=== PATIENT | female | born 1985 | race Caucasian/White ===

== ENCOUNTER 2016-12-13 07:35 | Inpatient (IN) | payer OTHER, MEDICAID ==
[2016-12-13] MEDS ORDERED: Nalbuphine 20 MG/1 ML Amp IVPUSH PRN (17:50)
[2016-12-13] MEDS ORDERED: Ondansetron 4 MG/2 ML SDV IVPUSH PRN ×2 (17:50→18:41)
[2016-12-13] MEDS ORDERED: Ampicillin 2 GM in Sodium Chloride 0.9% 100 ML IV ONE (17:50)
[2016-12-13] MEDS ORDERED: Lidocaine 1% 50 ML MDV INJECT ONE (17:50)
[2016-12-13] MEDS ORDERED: Sodium Chloride 0.9% 10 ML Syringe FLUSH PRN (17:50)
[2016-12-13] MEDS: Lactated Ringers 1,000 ML IV SCH ×3 (18:11→20:39)
[2016-12-13] MEDS ORDERED: FLU Vacc QS 2017-18 (6mos UP)/PF 60 MCG/0.5 ML Syringe IM ONE (18:15)
--- NOTE | 2016-12-13 18:27 | PCM.LDHP ---
L&D History of Present Illness - General Date of Service: 12/13/16 Admit Problem/Dx: Patient Status Order with Admit Dx/Problem 12/13/16 17:50 Patient Status [ADT] Routine Admission Diagnosis/Problem Admission Diagnosis/Problem complications 12/13/16 17:53 1. 37-3/7 week intrauterine and prepped 2. Gestational hypertension 3. Hypertensive retinopathy 4. Active labor Source of Information: Patient History Limitations: Reports: No Limitations - History of Present Illness Introduction:: Alexandra is a 31-year-old 5 para 4004 white female who is admitted from clinic in early active labor. She has changed her cervix from 1-2 cm 36 hours ago to 4 cm at this time. She is matt every 5 minutes. She has a history of gestational hypertension, is on labetalol 100 mg by mouth twice a day with reasonably good results. She has a history of diabetic retinopathy per her tele rn evaluation. Baby has been active and nonstress test has been reactive. RN PROCEDURE history: Patient is a 5 para 4004. ELIZABETH is 12/31/2016 is dated by 13-2/7 week ultrasound. Last menstrual period was irregular and uncertain. Her dates were supported by 2 other ultrasounds done on 08/14/2016 and 09/11/2016. Her previous deliveries included the followin. Delivery 03/29/2007 at 38 weeks after 4 hours of labor7 lbs. 5 oz.spontaneous vaginal delivery in [place], [place] 2. Female , 7 lbs. 10 oz., blurred 07/17/2009 at 39 weeks gestational age after 2 hours of labor. Baby delivered via normal [place] vaginal delivery. [facility]. 3. Male born 06/14/2013 at 38 weeks gestational age, 7 lbs. 12 oz., mild C [place] 4. Female infant born 08/05/2015 at 37 weeks gestational age after 2 hours labor , 6 lbs. 0 oz., normal spontaneous vaginal delivery, child's name is Blaike course was remarkable for the diabetic retinopathy. Patient had acid reflux. She had an abnormal 1 hour glucose tolerance test and an abnormal three- hour glucose tolerance test. She was on diet control for her diabetes with good results. She is on labetalol 100 mg by mouth every 12 hours throughout the . Group B strep screen was positive in the urine. She is candidate for prophylactic antibiotics. Inverted depression screening on 08/21/2016 was 0. Patient plans to bottlefeed. She had some thrombocytopenia affecting . Her last platelet count was 155 on 11/27/2016. Her weight gain during the course of the was from 213 pounds up to 218 pounds 4.5 pound weight gain. Fundal height growth was normal Laboratory testing and shows her blood to be O+. Negative antibody screen. Initial labs showed hemoglobin 13.1 g/dL. Platelets were 199, 000. Pap smear showed low-grade squamous intraepithelial lesion and patient was evaluated with colposcopy. Colposcopy showed no abnormalities and 9 requiring any attention during . It'll be repeated along with a Pap smear in the period. She is rubella immune. RPR is nonreactive. Group B strep was noted on urine culture at the beginning the . Hepatitis B and HIV assays were both negative. GC and chlamydia asses both negative. Her GTT was 148. Three-hour glucose tolerance test was abnormal. Her second trimester hemoglobin was 12.1 and platelets were 170. Platelets on 918 2155. Her three- hour glucose tolerance test was as follows: Fasting blood sugar 92, 1 hour GTT 173, 2R GTT 150, three-hour GTT 136. Allergies none Medications: 1. Labetalol 100 mg by mouth every 12 hours 2. vitamins daily 3. Prilosec 20 mg by mouth every morning when necessary for acid indigestion. Past medical history: 1. Vaginal delivery 4. 2. Diabetic retinopathy 3. Gestational hypertension. Family history mother is alive with type 2 diabetes. Father is alive and well. One brother and sister alive and. One sister has type 2 diabetes mellitus. Paternal grandmother is alive and well. Maternal grandfather secondary to an SC at age 54. Paternal grandfather . Medora to be secondary to some type of leukemia. Paternal grandmother secondary to leukemia. No family history of bleeding, anesthesia, blood clotting or problems family. Social history: Patient is single. Significant other is Levon Malloy. She does not use any significant amounts of alcohol, drugs or tobacco. She is an esl instructional assistant. She lives in [facility]. Review of systems: Skin: Negative Cardiovascular: No chest pain or exercise tolerance Respiratory: No infectious symptoms or shortness of breath Breasts: Changes associated with only GI: Negative : changes Neurological: Negative Musculoskeletal: Occasional edema. Physical exam: Last dilation clinic earlier today patient's blood pressure was 136/72, weight was 218 pounds. heart rate was 146. Initial findings showed a height of 53. Weight 213. Prepregnancy body mass index of 34.5. Her blood pressure at her first visit was 170/68. In general patient is a well-developed, well-nourished, pleasant female stated age in no acute distress. She appears to be a good historian. Skin is warm and dry without lesions. HEENT, neck and back within normal limits Lungs are clear with good breath sounds in all medel. Cardiovascular exam shows regular rate and rhythm without murmurs. Breast exam is deferred. Was done at first visit and found normal. Patient plans to bottlefeed. Abdomen is protuberant with with fundal height of 39 cm. AB in vertex presentation. Cervix: 4 cm, 80% effaced, -2 station, cephalic presentation, very soft consistency, anterior position, bag tesfaye intact. Extremities and neurological exam are grossly within normal limits. No significant edema noted. - Related Data Allergies/Adverse Reactions: Allergies Allergy/AdvReac Type Severity Reaction Status Date / Time No Known Allergies Allergy Verified 12/13/16 17:21 Home Medications: Home Meds Labetalol [Normodyne] 100 mg PO BID 12/13/16 [History] Omeprazole Magnesium [Prilosec Otc] 20 mg PO ASDIRECTED PRN 12/13/16 [History] Vit W-Ca,Fe,FA(<1 mg) [ Vitamins] 1 tab PO DAILY 12/13/16 [ History] Past Medical History Cardiovascular History: Reports: Hypertension, Other (See Below) Other Cardiovascular History: HTN during third trimester Gastrointestinal History: Reports: GERD Other Gastrointestinal History: Nausea and vomiting of RN PROCEDURE History: Reports: Endocrine/Metabolic History: Reports: Diabetes, Gestational Hematologic History: Reports: Iron Deficiency, Other (See Below) Other Hematologic History: Iron deficiency anemia of - Past Surgical History HEENT Surgical History: Reports: Oral Surgery Musculoskeletal Surgical History: Reports: Arthroscopic Knee Social & Family History - Family History Family Medical History: Noncontributory - Tobacco Use Smoking Status *Q: Current Every Day Smoker Years of Tobacco use: 14 Packs/Tins Daily: 0.1 Used Tobacco, but Quit: Yes Month Tobacco Last Used: Prepregnancy Second Hand Smoke Exposure: No - Recreational Drug Use Recreational Drug Use: No H&P Review of Systems - Review of Systems: Review Of Systems: See Below L&D Exam - Exam Exam: See Below - Vital Signs Weight: 99.246 kg - Patient Data Lab Results Last 24 hrs: Laboratory Results - last 24 hr 12/13/16 Range/Units 15:08 Urine Color Yellow (Yellow) Urine Appearance Clear (Clear) Urine pH 6.0 (5.0-8.0) Ur Specific [place] > or = 1.030 (1.005-1.030) Urine Protein 1+ H (Negative) Urine Glucose (UA) Negative (Negative) Urine Ketones Trace H (Negative) Urine Occult Blood Negative (Negative) Urine Nitrite Negative (Negative) Urine Bilirubin Negative (Negative) Urine Urobilinogen 0.2 (0.2-1.0) Ur Leukocyte Esterase Negative (Negative) Problem List Initiated/Reviewed/Updated: Yes Orders Last 24hrs: Active Orders 24 hr Category Date Time Status Patient Status [ADT] Routine ADT 12/13/16 17:50 Ordered Activity as Tolerated [RC] PFP Care 12/13/16 17:50 Ordered Communication Order [RC] ASDIRECTED Care 12/13/16 17:50 Ordered Heart Tones [RC] ASDIRECTED Care 12/13/16 17:51 Ordered Notify Provider [RC] PFP Care 12/13/16 17:50 Ordered Notify Provider [RC] PRN Care 12/13/16 17:50 Ordered Peripheral IV Care [RC] . DIRECTED Care 12/13/16 17:51 Ordered Pump Management, Intrathecal [RC] ASDIRECTED Care 12/13/16 17:52 Ordered Vital Signs [RC] PER UNIT ROUTINE Care 12/13/16 17:50 Ordered Regular Diet [DIET] Diet 12/13/16 Dinner Ordered CBC WITH AUTO DIFF [HEME] Stat Lab 12/13/16 17:50 Ordered Ampicillin 1 gm Med 12/13/16 18:00 Ordered Sodium Chloride 0.9% [Normal Saline] 100 ml IV Q4H Ampicillin 2 gm Med 12/13/16 17:50 Ordered Sodium Chloride 0.9% [Normal Saline] 100 ml IV ONETIME Lactated Ringers [Ringers, Lactated] 1,000 ml Med 12/13/16 18:00 Ordered IV ASDIRECTED Lidocaine 1% [Xylocaine 1%] Med 12/13/16 17:50 Once 10 ml INJECT ONETIME ONE Nalbuphine [Nubain] Med 12/13/16 17:50 Ordered 10 mg IVPUSH Q2H PRN Ondansetron [Zofran] Med 12/13/16 17:50 Ordered 4 mg IVPUSH Q4H PRN Sodium Chloride 0.9% [Saline Flush] Med 12/13/16 17:50 Ordered 10 ml FLUSH ASDIRECTED PRN Electronic Heart Tones Ext w TOCO [WOMSER] Oth 12/13/16 17:50 Ordered Routine Electronic Heart Tones Internal [WOMSER] Per Unit Ot 12/13/16 17:50 Ordered Routine Peripheral IV Insertion Adult [OM.PC] Routine Ot 12/13/16 17:50 Ordered Resuscitation Status Routine Resus Stat 12/13/16 17:50 Ordered Assessment/Plan Comment:: Assessment: 1. 37-3/7 week intrauterine , active labor with progressive cervical dilation 2. Gestational hypertension, cannot entirely rule out pre-existing hypertension before . On labetalol throughout with good control. 3. Hypertensive retinopathy 4. Gestational diabetes, diet controlled 5. Patient desiring epidural in labor and delivery for pain control. 6. Patient plans to bottlefeed. 7. Group B strep positive status Plan: 1. Admit for early active labor. 2. Ampicillin per protocol for group B strep prophylaxis 3. Epidural when necessary for pain control 4. Anticipate normal spontaneous vaginal delivery.
[2016-12-13] MEDS ORDERED: fentaNYL 100 MCG/2 ML SDV EPIDUR PRN (18:41)
[2016-12-13] MEDS ORDERED: ePHEDrine 50 MG/ML SDV IVPUSH PRN (18:41)
[2016-12-13] MEDS ORDERED: Bupivacaine/fentaNYL/NS 100 ML Bag EPIDUR SCH (18:45)
[2016-12-13] MEDS ORDERED: Bupivacaine 0.25% 10 ML SDV ONE (18:45)
--- NOTE | 2016-12-13 18:45 | PCM.PREANE ---
Preanesthetic Assessment - Anesthesia/Transfusion/Family Hx Anesthesia History: Prior Anesthesia Without Reaction Family History of Anesthesia Reaction: No Transfusion History: No Prior Transfusion(s) Intubation History: Unknown - Review of Systems General: No Symptoms Pulmonary: No Symptoms Cardiovascular: No Symptoms (Gestational HTN/Hypertensive retinopathy), Dyspnea on Exertion Gastrointestinal: No Symptoms (GERD) Neurological: No Symptoms (Motion sickness) Other: Reports: None, Sinus Problem (stuffy nose) - Physical Assessment NPO Status Date: 12/13/16 NPO Status Time: 16:00 Pulse: 100 O2 Sat by Pulse Oximetry: 99 Respiratory Rate: 20 Blood Pressure: 141/75 Temperature: 36.2 C Vital Signs: Last Vital Signs Temp 36.2 C 12/13/16 17:50 Pulse 90 12/13/16 18:15 Resp 17 12/13/16 17:50 BP 142/81 H 12/13/16 18:15 Pulse Ox Height: 1.6 m Weight: 99.246 kg ASA Class: 2 Mental Status: Alert & Oriented x3 Airway Class: Mallampati = 2 Dentition: Reports: Normal Dentition, Caries Thyro-Mental Finger Breadths: 3 Mouth Opening Finger Breadths: 3 ROM/Head Extension: Full Lungs: Clear to Auscultation, Normal Respiratory Effort Cardiovascular: Regular Rate, Regular Rhythm, No Murmurs - Lab Values: Laboratory Last Values WBC 9.93 K/mm3 (3.98-10.04) 12/13/16 18:04 RBC 4.12 M/mm3 (3.98-5.22) 12/13/16 18:04 Hgb 12.4 gm/L (11.2-15.7) 12/13/16 18:04 Hct 36.9 % (34.1-44.9) 12/13/16 18:04 MCV 89.6 fl (79.4-94.8) 12/13/16 18:04 MCH 30.1 pg (25.6-32.2) 12/13/16 18:04 MCHC 33.6 g/dl (32.2-35.5) 12/13/16 18:04 RDW Std Deviation 47.9 fL (36.4-46.3) H 12/13/16 18:04 Plt Count 159 K/mm3 (182-369) L 12/13/16 18:04 MPV 11.4 fl (9.4-12.3) 12/13/16 18:04 Neut % (Auto) 67.1 % (34.0-71.1) 12/13/16 18:04 Lymph % (Auto) 23.8 % (19.3-51.7) 12/13/16 18:04 [place] % (Auto) 7.9 % (4.7-12.5) 12/13/16 18:04 Eos % (Auto) 0.9 (0.7-5.8) 12/13/16 18:04 Baso % (Auto) 0.1 % (0.1-1.2) 12/13/16 18:04 Neut # (Auto) 6.67 K/mm3 (1.56-6.13) H 12/13/16 18:04 Lymph # (Auto) 2.36 K/mm3 (1.18-3.74) 12/13/16 18:04 [place] # (Auto) 0.78 K/mm3 (0.24-0.36) H 12/13/16 18:04 Eos # (Auto) 0.09 K/mm3 (0.04-0.36) 12/13/16 18:04 Baso # (Auto) 0.01 K/mm3 (0.01-0.08) 12/13/16 18:04 Urine Color Yellow (Yellow) 12/13/16 15:08 Urine Appearance Clear (Clear) 12/13/16 15:08 Urine pH 6.0 (5.0-8.0) 12/13/16 15:08 Ur Specific [place] > or = 1.030 (1.005-1.030) 12/13/16 15:08 Urine Protein 1+ (Negative) H 12/13/16 15:08 Urine Glucose (UA) Negative (Negative) 12/13/16 15:08 Urine Ketones Trace (Negative) H 12/13/16 15:08 Urine Occult Blood Negative (Negative) 12/13/16 15:08 Urine Nitrite Negative (Negative) 12/13/16 15:08 Urine Bilirubin Negative (Negative) 12/13/16 15:08 Urine Urobilinogen 0.2 (0.2-1.0) 12/13/16 15:08 Ur Leukocyte Esterase Negative (Negative) 12/13/16 15:08 Above labs reviewed and noted. - Allergies Allergies/Adverse Reactions: Allergies Allergy/AdvReac Type Severity Reaction Status Date / Time No Known Allergies Allergy Verified 12/13/16 17:21 - Anesthesia Plan Beta Ernestina: Labetalol Med Last Dose Date: 12/13/16 Med Last Dose Time: 06:00 - Acknowledgements Anesthesia Type Planned: Epidural Pt an Appropriate Candidate for the Planned Anesthesia: Yes Alternatives and Risks of Anesthesia Discussed w Pt/Guardian: Yes Pt/Guardian Understands and Agrees with Anesthesia Plan: Yes PreAnesthesia Questionnaire Cardiovascular History: Reports: Hypertension, Other (See Below) Other Cardiovascular History: HTN during third trimester Gastrointestinal History: Reports: GERD Other Gastrointestinal History: Nausea and vomiting of [employer] History: Reports: Endocrine/Metabolic History: Reports: Diabetes, Gestational Hematologic History: Reports: Iron Deficiency, Other (See Below) Other Hematologic History: Iron deficiency anemia of - Past Surgical History HEENT Surgical History: Reports: Oral Surgery Musculoskeletal Surgical History: Reports: Arthroscopic Knee - SUBSTANCE USE Smoking Status *Q: Current Every Day Smoker Tobacco Use Within Last Twelve Months: Cigarettes Second Hand Smoke Exposure: No Recreational Drug Use History: No - HOME MEDS Home Medications: Home Meds Labetalol [Normodyne] 100 mg PO BID 12/13/16 [History] Omeprazole Magnesium [Prilosec Otc] 20 mg PO ASDIRECTED PRN 12/13/16 [History] Vit W-Ca,Fe,FA(<1 mg) [ Vitamins] 1 tab PO DAILY 12/13/16 [ History] - CURRENT (IN HOUSE) MEDS Current Meds: Current Medications Ampicillin Sodium 1 gm/ Sodium (Chloride) 100 mls @ 200 mls/hr IV Q4H ROSALBA Lactated Ringer's (Ringers, Lactated) 1,000 mls @ 100 mls/hr IV ASDIRECTED ROSALBA Last Admin: 12/13/16 18:11 Dose: 100 mls/hr Nalbuphine HCl (Nubain) 10 mg IVPUSH Q2H PRN PRN Reason: Pain (moderate 4-6) Ondansetron HCl (Zofran) 4 mg IVPUSH Q4H PRN PRN Reason: Nausea/Vomiting Sodium Chloride (Saline Flush) 10 ml FLUSH ASDIRECTED PRN PRN Reason: Keep Vein Open Discontinued Medications Ampicillin Sodium 2 gm/ Sodium (Chloride) 100 mls @ 200 mls/hr IV ONETIME ONE Stop: 12/13/16 18:19 Last Admin: 12/13/16 18:11 Dose: 200 mls/hr Lidocaine HCl (Xylocaine 1%) 10 ml INJECT ONETIME ONE Stop: 12/13/16 17:51
[2016-12-13] MEDS ORDERED: Oxytocin/Lactated Ringers 10 UNIT/1,000 ML BAG IV SCH ×2 (20:45)
[2016-12-13] MEDS: Ampicillin 1 GM in Sodium Chloride 0.9% 100 ML IV SCH (21:52)
[2016-12-14] MEDS: Ampicillin 1 GM in Sodium Chloride 0.9% 100 ML IV SCH (01:46)
--- NOTE | 2016-12-14 03:09 | PCM.SN ---
- Free Text/Narrative Note: Alexandra is a 31-year-old 5 now para 5005 white female who is admitted today on 12/13/2016 for active contractions and change in her cervix. She is 37-3 /7 weeks upon admission based upon an early ultrasound. Her is complicated by hypertension and hypertensive retinopathy. She's been monitored on a regular basis with testing which has been within normal limits. She's been on labetalol 100 mg by mouth twice a day throughout the . Upon admission her cervix was noted to be 4 centimeters, 80% effaced, -2 station , mid to anterior position, very soft consistency of cervix. The membranes were ruptured and this facilitated an increase in contractions. Patient became near completely dilated at approximately 0240 hrs. on 12/14/2016. She pushed 1 time and delivered a viable, noe, 3600 g pregnancies 7 lbs. 15 oz.) male infant with Apgars of 8 and 9, a length 21 inches in a right occiput anterior position. Baby was completely delivered and placed on mom's abdomen. Cord was clamped 2 and the dad cut the cord. Cord blood was obtained. The umbilical cord was found to have 3 vessels. The patient was administered Pitocin IV after delivery of the baby. This facilitated increase in uterine tone and decrease bleeding. The placenta then delivered spontaneously in a [place] presentation. It appeared complete and intact and was discarded per patient desire. Estimated blood loss was 100 mL. Patient did not have any perineal or vaginal lacerations. She plans to bottlefeed. Condition: Good
[2016-12-14] MEDS ORDERED: Witch Hazel Medicated Pads 100/Jar TOP PRN (03:49)
[2016-12-14] MEDS ORDERED: Docusate Sodium 100 MG Cap PO PRN (03:49)
[2016-12-14] MEDS ORDERED: Benzocaine/Menthol 20%-0.5% Spray 56 GM Canister TOP PRN (03:49)
[2016-12-14] MEDS ORDERED: Acetaminophen 325 MG Tab PO PRN (03:49)
[2016-12-14] MEDS ORDERED: Labetalol 100 MG Tab PO SCH ×2 (09:00)
[2016-12-14] MEDS: Prenatal Multivitamin with Calcium/Folic Acid/Iron Tab PO SCH (10:01)
--- NOTE | 2016-12-14 12:46 | PCM48HPAN ---
Post Anesthesia Note - EVALUATION WITHIN 48HRS OF ANESTHETIC Vital Signs in Normal Range: Yes Patient Participated in Evaluation: Yes Respiratory Function Stable: Yes Airway Patent: Yes Cardiovascular Function Stable: Yes Hydration Status Stable: Yes Pain Control Satisfactory: Yes Nausea and Vomiting Control Satisfactory: Yes Mental Status Recovered: Yes - COMMENTS/OBSERVATIONS Free Text/Narrative:: Denied any headaches, back pain, or residual numbness/ tingling to lower extremities.
[2016-12-14] MEDS: Ibuprofen 600 MG Tab PO PRN (19:19)
--- NOTE | 2016-12-15 06:14 | PCM.DCSUM1 ---
Discharge Summary - Hospital Course Free Text/Narrative:: Alexandra is a 31-year-old 5 now para 5005 white female who is admitted on 12/13/2016 for active contractions and change in her cervix. She is 37-3/7 weeks upon admission based upon an early ultrasound. Her is complicated by hypertension and hypertensive retinopathy. She's been monitored on a regular basis with testing which has been within normal limits. She's been on labetalol 100 mg by mouth twice a day throughout the . Upon admission her cervix was noted to be 4 centimeters, 80% effaced, -2 station, mid to anterior position, very soft consistency of cervix. The membranes were ruptured and this facilitated an increase in contractions. Patient became near completely dilated at approximately 0240 hrs. on 12/14/2016. She pushed 1 time and delivered a viable, noe, 3600 g pregnancies 7 lbs. 15 oz.) male infant with Apgars of 8 and 9, a length 21 inches in a right occiput anterior position. Baby was completely delivered and placed on mom's abdomen. Cord was clamped 2 and the dad cut the cord. Cord blood was obtained. The umbilical cord was found to have 3 vessels. The patient was administered Pitocin IV after delivery of the baby. This facilitated increase in uterine tone and decrease bleeding. The placenta then delivered spontaneously in a [place] presentation. It appeared complete and intact and was discarded per patient desire. Estimated blood loss was 100 mL. Patient did not have any perineal or vaginal lacerations. She plans to bottlefeed. the patient's blood pressures have been within normal limits for the entire.. She is bottlefeeding. Lochia is minimal. She is feeling fine. She is desiring to be discharged. - Discharge Data Discharge Date: 12/15/16 Discharge Disposition: Left Without Being Seen 07 Condition: Good - Patient Instructions Diet: Regular Diet as Tolerated Activity: As Tolerated (No intercourse or tampons until bleeding resolves) Driving: May Drive Today Showering/Bathing: May Shower (may take a bath) Notify Provider of: Fever, Increased Pain, Swelling and Redness, Nausea and/or Vomiting - Discharge Plan Home Medications: Home Meds Vit W-Ca,Fe,FA(<1 mg) [ Vitamins] 1 tab PO DAILY 12/13/16 [ History] Ibuprofen [IJD: Ibuprofen] 600 mg PO Q4H PRN #30 tablet 12/15/16 [Rx] Patient Handouts: Smoking Cessation, Tips for Success, [id number], Smoking Hazards Referrals: Ricci Andrade MD [Primary Care Provider] - ([facility] to clinicDr. [facility] - Discharge Summary/Plan Comment DC Time >30 min.: No Discharge Summary/Plan Comment: Discharge instructions: 1. Discharge 2. Regular, high fiber diet 3. Activity and follow-up discussed in detail patient. 4. Precautions given concerning increased pain, bleeding, temperature, blood pressure, signs/symptoms of DVT/PE 5. Medications per home medication was printed, discussed with given to the patient. 6. Return to clinic1 week for blood pressure checks-Dr. Andrade. Diagnosis: 1. 37 week -delivered 2. Gestational hypertension 3. Hypertensive retinopathy Condition: Good - Patient Data Vitals - Most Recent: Last Vital Signs Temp 36.4 C 12/14/16 21:02 Pulse 88 12/14/16 21:02 Resp 16 12/14/16 21:02 BP 127/63 12/14/16 21:02 Pulse Ox 97 12/14/16 21:02 Weight - Most Recent: 99.246 kg I&O - Last 24 hours: Intake & Output 12/14/16 12/14/16 12/15/16 14:59 22:59 06:59 Intake Total 300 120 Balance 300 120 Med Orders - Current: Current Medications Acetaminophen (Tylenol) 650 mg PO Q4H PRN PRN Reason: mild pain or fever Benzocaine/Menthol (Dermoplast Pain Relief [place]) 0 gm TOP ASDIRECTED PRN PRN Reason: Perineal Comfort Measure Docusate Sodium (Colace) 100 mg PO BID PRN PRN Reason: Constipation Ibuprofen (Motrin) 600 mg PO Q4H PRN PRN Reason: Mild pain or fever Last Admin: 12/14/16 19:19 Dose: 600 mg Prenat Multivit/[place]/Iron/Folic Ac ( Plus Iron) 1 each PO DAILY ROSALBA Last Admin: 12/14/16 10:01 Dose: 1 each [place] (Tucks) 1 pad TOP ASDIRECTED PRN PRN Reason: Hemorrhoid pain Discontinued Medications Ephedrine Sulfate (Ephedrine Sulfate) 5 mg IVPUSH ASDIRECTED PRN PRN Reason: Hypotension Fentanyl (Sublimaze) 100 mcg EPIDUR Q3H PRN PRN Reason: Pain Last Admin: 12/13/16 19:38 Dose: 100 mcg Fentanyl/Bupivacaine HCl (Fentanyl/Bupivacaine/Ns 2 Mcg-0.125% 100 Ml) 100 ml EPIDUR ASDIRECTED ROSALBA Last Admin: 12/13/16 19:37 Dose: 100 ml Ampicillin Sodium 2 gm/ Sodium (Chloride) 100 mls @ 200 mls/hr IV ONETIME ONE Stop: 12/13/16 18:19 Last Admin: 12/13/16 18:11 Dose: 200 mls/hr Ampicillin Sodium 1 gm/ Sodium (Chloride) 100 mls @ 200 mls/hr IV Q4H [facility] Last Admin: 12/14/16 01:46 Dose: 200 mls/hr Lactated Ringer's (Ringers, Lactated) 1,000 mls @ 100 mls/hr IV ASDIRECTED [facility] Last Admin: 12/13/16 20:39 Dose: 100 mls/hr Oxytocin/Lactated Ringer's (Pitocin In Lr 10 Units/1,000 Ml) 10 unit in 1,000 mls @ 12 mls/hr IV TITRATE ROSALBA; 2 MUNITS/MIN PRN Reason: Protocol Oxytocin/Lactated Ringer's (Pitocin In Lr 10 Units/1,000 Ml) 10 unit in 1,000 mls @ 500 mls/hr IV ASDIRECTED [facility] Labetalol HCl (Normodyne) 100 mg PO BID ROSALBA Lidocaine HCl (Xylocaine 1%) 10 ml INJECT ONETIME ONE Stop: 12/13/16 17:51 Nalbuphine HCl (Nubain) 10 mg IVPUSH Q2H PRN PRN Reason: Pain (moderate 4-6) Ondansetron HCl (Zofran) 4 mg IVPUSH Q4H PRN PRN Reason: Nausea/Vomiting Ondansetron HCl (Zofran) 4 mg IVPUSH ONETIME PRN PRN Reason: Nausea/Vomiting Sodium Chloride (Saline Flush) 10 ml FLUSH ASDIRECTED PRN PRN Reason: Keep Vein Open *Q Meaningful Use (DIS) - VTE *Q VTE Criteria *Q: - Stroke *Q Stroke Criteria *Q: - AMI *Q AMI Criteria *Q:
[2016-12-15] MEDS: Ibuprofen 600 MG Tab PO PRN (06:36)
[2016-12-15 10:59] VITALS: BP 120/73
[2016-12-15] MEDS: Prenatal Multivitamin with Calcium/Folic Acid/Iron Tab PO SCH (11:01)
== END 2016-12-15 11:00 | disposition home or self-care (01) | DRG 775 ==
LOC: JD.WOMH 07:35 → JD.OB 16:42 → OBSVTOIN 12-14 02:46 → JD.OB 12-14 02:46
PROVIDERS: ADMIT Obstetrics & Gynecology; ATTEND Obstetrics & Gynecology
PROC: 10E0XZZ Delivery of Products of Conception, External Approach (ICD-10-PCS; principal; 2016-12-14)
PROC: 10907ZC Drainage of Amniotic Fluid, Therapeutic from Products of Conception, Via Natural or Artificial Opening (ICD-10-PCS; 2016-12-14)
PROC: 00HU33Z Insertion of Infusion Device into Spinal Canal, Percutaneous Approach (ICD-10-PCS; 2016-12-14)
PROC: 3E0R3BZ Introduction of Anesthetic Agent into Spinal Canal, Percutaneous Approach (ICD-10-PCS; 2016-12-14)
PROC: 3E0234Z Introduction of Serum, Toxoid and Vaccine into Muscle, Percutaneous Approach (ICD-10-PCS; 2016-12-14)
DX: O13.4 Gestational [pregnancy-induced] hypertension without significant proteinuria, complicating childbirth (principal); O24.420 Gestational diabetes mellitus in childbirth, diet controlled; H35.039 Hypertensive retinopathy, unspecified eye; O99.334 Smoking (tobacco) complicating childbirth; Z3A.37 37 weeks gestation of pregnancy; Z37.0 Single live birth; Z23 Encounter for immunization
CPT/HCPCS: 36415; 51702; 59409; 81003; 85025; 85027; 90686; A9270-GY; J0290; J3010; J7030; J7120

== ENCOUNTER 2017-04-13 08:24 | Day surgery (SDC) | payer OTHER, MEDICAID ==
[~2017-04-13 08:24] MED LIST: Lactated Ringers 1,000 ML IV SCH; Lidocaine 1%/Sod Bicarbonate in NS 8.4% 1 ML Syringe IDERM PRN; Sodium Chloride 0.9% 10 ML Syringe FLUSH PRN
[2017-04-13] MEDS ORDERED: Lidocaine 1% with EPINEPHrine 1:100,000 20 ML MDV ONE (08:33)
[2017-04-13] MEDS ORDERED: Sodium Chloride 0.9% 50 ML SDV ONE (08:34)
[2017-04-13] MEDS ORDERED: Ketorolac 30 MG/ML SDV ONE (08:43)
[2017-04-13] MEDS ORDERED: Rocuronium 50 MG/5 ML Vial ONE (08:43)
[2017-04-13] MEDS ORDERED: ceFAZolin 1 GM Vial ONE (08:43)
[2017-04-13] MEDS ORDERED: Lidocaine 1% 6 ML ONE (08:43)
[2017-04-13] MEDS ORDERED: Ondansetron 4 MG/2 ML SDV ONE (08:43)
[2017-04-13] MEDS ORDERED: Propofol 200 MG/20 ML SDV ONE ×2 (08:43→09:52)
[2017-04-13] MEDS ORDERED: Lactated Ringers 1,000 ML ONE (08:43)
[2017-04-13] MEDS ORDERED: Midazolam 1 MG/ML 2 ML SDV ONE ×2 (08:43→09:24)
[2017-04-13] MEDS ORDERED: Dexamethasone 4 MG/ML 5 ML MDV ONE (08:43)
[2017-04-13] MEDS ORDERED: fentaNYL 250 MCG/5 ML SDV ONE (08:43)
[2017-04-13] MEDS ORDERED: Albuterol 0.083% 2.5 MG/3 ML Neb Soln NEB SCH (09:00)
--- NOTE | 2017-04-13 09:05 | PCM.PREANE ---
Preanesthetic Assessment - Anesthesia/Transfusion/Family Hx Anesthesia History: Prior Anesthesia Without Reaction Family History of Anesthesia Reaction: No Transfusion History: No Prior Transfusion(s) Intubation History: Unknown - Review of Systems General: No Symptoms Pulmonary: Other (smoker, 1/2 pack) Cardiovascular: Other (HTN) Gastrointestinal: Other (GERD) Neurological: No Symptoms - Physical Assessment NPO Status Date: 04/12/17 NPO Status Time: 19:30 Pulse: 88 O2 Sat by Pulse Oximetry: 96 Respiratory Rate: 17 Blood Pressure: 121/65 Temperature: 36.6 C Vital Signs: Last Vital Signs Temp 36.6 C 04/13/17 08:27 Pulse 88 04/13/17 08:27 Resp 17 04/13/17 08:27 BP 121/65 04/13/17 08:27 Pulse Ox 98 04/13/17 08:55 Height: 1.63 m Weight: 94.347 kg ASA Class: 2 Mental Status: Alert & Oriented x3 Airway Class: Mallampati = 2 Dentition: Reports: Normal Dentition Thyro-Mental Finger Breadths: 3 Mouth Opening Finger Breadths: 3 ROM/Head Extension: Full Lungs: Clear to Auscultation, Normal Respiratory Effort Cardiovascular: Regular Rate, Regular Rhythm - Lab Values: Laboratory Last Values WBC 8.64 K/mm3 (3.98-10.04) 04/12/17 13:47 RBC 5.09 M/mm3 (3.98-5.22) 04/12/17 13:47 Hgb 15.4 gm/L (11.2-15.7) 04/12/17 13:47 Hct 45.6 % (34.1-44.9) H 04/12/17 13:47 MCV 89.6 fl (79.4-94.8) 04/12/17 13:47 MCH 30.3 pg (25.6-32.2) 04/12/17 13:47 MCHC 33.8 g/dl (32.2-35.5) 04/12/17 13:47 RDW Std Deviation 46.1 fL (36.4-46.3) 04/12/17 13:47 Plt Count 256 K/mm3 (182-369) 04/12/17 13:47 MPV 10.9 fl (9.4-12.3) 04/12/17 13:47 Neut % (Auto) 56.4 % (34.0-71.1) 04/12/17 13:47 Lymph % (Auto) 32.8 % (19.3-51.7) 04/12/17 13:47 [place] % (Auto) 9.1 % (4.7-12.5) 04/12/17 13:47 Eos % (Auto) 1.4 (0.7-5.8) 04/12/17 13:47 Baso % (Auto) 0.1 % (0.1-1.2) 04/12/17 13:47 Neut # (Auto) 4.87 K/mm3 (1.56-6.13) 04/12/17 13:47 Lymph # (Auto) 2.83 K/mm3 (1.18-3.74) 04/12/17 13:47 [place] # (Auto) 0.79 K/mm3 (0.24-0.36) H 04/12/17 13:47 Eos # (Auto) 0.12 K/mm3 (0.04-0.36) 04/12/17 13:47 Baso # (Auto) 0.01 K/mm3 (0.01-0.08) 04/12/17 13:47 Creatinine 0.8 mg/dL (0.55-1.02) 04/12/17 13:47 Est Cr Clr Drug Dosing TNP 04/12/17 13:47 Estimated GFR (MDRD) > 60 mL/min (>60) 04/12/17 13:47 Urine Color Yellow (Yellow) 04/12/17 13:47 Urine Appearance Clear (Clear) 04/12/17 13:47 Urine pH 6.0 (5.0-8.0) 04/12/17 13:47 Ur Specific [place] > or = 1.030 (1.005-1.030) 04/12/17 13:47 Urine Protein Negative (Negative) 04/12/17 13:47 Urine Glucose (UA) Negative (Negative) 04/12/17 13:47 Urine Ketones Negative (Negative) 04/12/17 13:47 Urine Occult Blood Negative (Negative) 04/12/17 13:47 Urine Nitrite Negative (Negative) 04/12/17 13:47 Urine Bilirubin Negative (Negative) 04/12/17 13:47 Urine Urobilinogen 0.2 (0.2-1.0) 04/12/17 13:47 Ur Leukocyte Esterase Negative (Negative) 04/12/17 13:47 Urine RBC Not seen /hpf (0-5) 04/12/17 13:47 Urine WBC Not seen /hpf (0-5) 04/12/17 13:47 Ur Epithelial Cells 0-5 /hpf (0-5) 04/12/17 13:47 Urine Bacteria Few /hpf (FEW) 04/12/17 13:47 Urine Mucus Not seen /hpf (FEW) 04/12/17 13:47 Urine HCG, Qual Negative (NEGATIVE) 04/12/17 13:47 Blood Type O POSITIVE 04/12/17 13:47 Gel Antibody Screen Negative 04/12/17 13:47 - Allergies Allergies/Adverse Reactions: Allergies Allergy/AdvReac Type Severity Reaction Status Date / Time No Known Allergies Allergy Verified 04/12/17 14:31 - Blood Blood Available: No Product(s) Available: None - Anesthesia Plan Beta Ernestina: Labetalol Med Last Dose Date: 04/13/17 Med Last Dose Time: 07:30 - Acknowledgements Anesthesia Type Planned: General Anesthesia Pt an Appropriate Candidate for the Planned Anesthesia: Yes Alternatives and Risks of Anesthesia Discussed w Pt/Guardian: Yes Pt/Guardian Understands and Agrees with Anesthesia Plan: Yes PreAnesthesia Questionnaire Cardiovascular History: Reports: Hypertension, Other (See Below) Other Cardiovascular History: HTN during third trimester Respiratory History: Reports: None Gastrointestinal History: Reports: GERD Other Gastrointestinal History: Nausea and vomiting of Genitourinary History: Reports: None [employer]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: , Other (See Below) Other OB/BYN History: menorrhagia, dysmenorrhea, irregular menses, , vaginal itching, pelvic pressure Neurological History: Reports: None Psychiatric History: Reports: None Endocrine/Metabolic History: Reports: Diabetes, Gestational Hematologic History: Reports: Iron Deficiency, Other (See Below) Other Hematologic History: Iron deficiency anemia of , thrombocytopenia Immunologic History: Reports: None Oncologic (Cancer) History: Reports: None Dermatologic History: Reports: Other (See Below) Other Dermatologic History: right hand cellulitis, infected wound - Past Surgical History Head Surgeries/Procedures: Reports: None HEENT Surgical History: Reports: Oral Surgery Cardiovascular Surgical History: Reports: None Respiratory Surgical History: Reports: None GI Surgical History: Reports: None Female Surgical History: Reports: None Male Surgical History: Reports: None Neurological Surgical History: Reports: None Musculoskeletal Surgical History: Reports: Arthroscopic Knee Other Musculoskeletal Surgeries/Procedures:: Fracture of knee cap Oncologic Surgical History: Reports: None Dermatological Surgical History: Reports: None - SUBSTANCE USE Smoking Status *Q: Current Every Day Smoker Tobacco Use Within Last Twelve Months: Cigarettes Second Hand Smoke Exposure: No Recreational Drug Use History: No - HOME MEDS Home Medications: Home Meds Labetalol [Normodyne] 100 mg PO BID 04/12/17 [History] - CURRENT (IN HOUSE) MEDS Current Meds: Current Medications Albuterol (Proventil Neb Soln) 2.5 mg NEB ONETIME ROSALBA Stop: 04/13/17 18:00 Last Admin: 04/13/17 08:55 Dose: 2.5 mg Lactated Ringer's (Ringers, Lactated) 1,000 mls @ 125 mls/hr IV ASDIRECTED ROSALBA Stop: 04/13/17 23:00 Lidocaine/Sodium Bicarbonate (Buffered Lidocaine 1% In Ns 8.4%) 0.25 ml IDERM ONETIME PRN PRN Reason: Prior to IV Start Stop: 04/13/17 18:00 Sodium Chloride (Saline Flush) 10 ml FLUSH ASDIRECTED PRN PRN Reason: Keep Vein Open Stop: 04/13/17 18:00 Discontinued Medications Cefazolin Sodium (Ancef) Confirm Administered Dose 2 gm .ROUTE .STK-MED ONE Stop: 04/13/17 08:44 Dexamethasone (Dexamethasone) Confirm Administered Dose 40 mg .ROUTE .STK-MED ONE Stop: 04/13/17 08:44 Fentanyl (Sublimaze) Confirm Administered Dose 250 mcg .ROUTE .STK-MED ONE Stop: 04/13/17 08:44 Lidocaine HCl (Xylocaine-Mpf 1%) Confirm Administered Dose 6 mls @ as directed .ROUTE .STK-MED ONE Stop: 04/13/17 08:44 Lactated Ringer's (Ringers, Lactated) Confirm Administered Dose 1,000 mls @ as directed .ROUTE .STK-MED ONE Stop: 04/13/17 08:44 Ketorolac Tromethamine (Toradol) Confirm Administered Dose 30 mg .ROUTE .STK- MED ONE Stop: 04/13/17 08:44 Lidocaine/Epinephrine (Xylocaine 1% With Epinephrine 1:100,000) Confirm Administered Dose 20 ml .ROUTE .STK-MED ONE Stop: 04/13/17 08:34 Midazolam HCl (Versed 1 Mg/Ml) Confirm Administered Dose 2 mg .ROUTE .STK-MED ONE Stop: 04/13/17 08:44 Ondansetron HCl (Zofran) Confirm Administered Dose 4 mg .ROUTE .STK-MED ONE Stop: 04/13/17 08:44 Propofol (Diprivan 20 Ml) Confirm Administered Dose 200 mg .ROUTE .STK-MED ONE Stop: 04/13/17 08:44 Rocuronium [place] (Zemuron) Confirm Administered Dose 50 mg .ROUTE .STK-MED ONE Stop: 04/13/17 08:44 Sodium Chloride (Normal Saline) Confirm Administered Dose 50 ml .ROUTE .STK-MED ONE Stop: 04/13/17 08:35
[2017-04-13] MEDS ORDERED: HYDROmorphone 1 MG/ML Syringe ONE (10:01)
[2017-04-13] MEDS ORDERED: fentaNYL 100 MCG/2 ML SDV IVPUSH PRN (10:06)
[2017-04-13] MEDS ORDERED: Ondansetron 4 MG/2 ML SDV IVPUSH PRN ×2 (10:06→10:25)
[2017-04-13] MEDS ORDERED: HYDROmorphone 0.5 MG/0.5 ML Syringe IVPUSH PRN (10:06)
[2017-04-13] MEDS ORDERED: Neostigmine Methylsulfate 1 MG/ML 5 ML Syringe ONE (10:27)
[2017-04-13] MEDS ORDERED: Ketorolac 30 MG/ML SDV IVPUSH SCH (10:30)
--- NOTE | 2017-04-13 10:31 | PCM.OPNOTE ---
- General Post-Op/Procedure Note Date of Surgery/Procedure: 04/13/17 Operative Procedure(s): Total vaginal hysterectomy with bilateral salpingectomy Findings: Uterus is upper limits normal size. Bilateral ovaries were functional and normal in appearance. Fallopian tubes were also normal in appearance bilaterally. Pre Op Diagnosis: 1. Dysmenorrhea. 2. Menorrhagia. 3. Irregular menstrual cycles. Post-Op Diagnosis: Same Anesthesia Technique: General ET Tube Other Anesthesia Type: Lidocaine quarter percent with [id number] mL total Primary Surgeon: Ricci Andrade Secondary Surgeon: Arturo Deleon Anesthesia Provider: Shira Maradiaga Salad Counter Attendant: Johnson Cohn Role of Salad Counter Attendant: Retraction, assistance, quality of care, patient safety Pathology: Uterus and bilateral tubes sent as one specimen Fluid Replacement, Intraop: 1,500 EBL in mLs: 200 Complications: None Condition: Good Free Text/Narrative:: Surgery duration: 36 minutes Procedure: The patient was placed in supine position on the operating table. General endotracheal anesthesia was accomplished. After positioning, and adequate prep and drape, the procedure was then performed. Sterile speculum was placed in the vagina and cervix was visualized. Cervix was injected with lidocaine quarter percent with [id number] mL used. A full circumference incision was made in the cervical epithelium. The bladder was pushed well back off cervix. Posterior cul-de-sac was then entered sharply without problems. Left uterosacral was crossclamped with a Enseal vessel closure system. The left uterosacral and then the right uterosacral ligament pedicles were developed using the Enseal system. The anterior cul-de-sac was then entered without problems and the uterine vasculature, cardinal ligament and broad ligament then developed using Enseal vessel closure system. The uterus was inverted at this time and upper broad ligament fallopian tube pedicles were crossclamped with Lorna clamps. Specimen was totally removed. Both these pedicles were then secured with a Lorna stitch of #1 Vicryl. Left and right fallopian tube was normal in appearance.. Using Enseal vessel closure system each of the tubes was then removed and sent with the specimen. The Enseal vessel closure system was used to remove both ovaries. The patient was found to be hemostatically intact at this time. Vaginal cuff was sutured for hemostatic reasons with a running locked suture of 0 Monocryl in full circumference. Vaginal cuff was then closed from right to left side with a running locked suture of 0 Monocryl. Patient was returned to supine position and awakened from general endotracheal anesthesia. She tolerated the procedure was then left the operating room in satisfactory condition.
[2017-04-13] MEDS ORDERED: diphenhydrAMINE 50 MG/ML SDV IVPUSH PRN (10:51)
[2017-04-13] MEDS ORDERED: Albuterol 0.083% 2.5 MG/3 ML Neb Soln NEB ONE (10:51)
[2017-04-13 12:36] VITALS: BP 122/74
[2017-04-13] MEDS ORDERED: Acetaminophen/oxyCODONE 325-5 MG Tab PO PRN (12:39)
== END 2017-04-13 13:03 | disposition home or self-care (01) ==
LOC: JD.SDS 08:24
PROVIDERS: ATTEND Obstetrics & Gynecology
DX: N87.0 Mild cervical dysplasia (principal); N72 Inflammatory disease of cervix uteri; I10 Essential (primary) hypertension; K21.9 Gastro-esophageal reflux disease without esophagitis; Z87.891 Personal history of nicotine dependence
CPT/HCPCS: 36415; 58262; 81001; 81025; 82565; 85025; 86850; 86900; 86901; 94640; A9270; J0690; J1100; J1170; J1200; J1885; J2250; J2405; J2710; J3010; J7120; J2704

== ENCOUNTER 2017-04-21 12:46 | Emergency (ER) | payer OTHER, MEDICAID ==
[2017-04-21 13:05] VITALS: BP 140/85
[2017-04-21] MEDS ORDERED: Sodium Chloride 0.9% 500 ML IV ONE (13:32)
[2017-04-21] MEDS ORDERED: Sodium Chloride 0.9% 10 ML Syringe FLUSH PRN (13:33)
--- NOTE | 2017-04-21 13:43 | EDM.PDOC ---
ED HPI GENERAL MEDICAL PROBLEM - General Chief Complaint: Abdominal Pain Stated Complaint: RT SIDE PAIN AFTER SURGERY Time Seen by Provider: 04/21/17 13:20 Source of Information: Reports: Patient, RN Notes Reviewed - History of Present Illness INITIAL COMMENTS - FREE TEXT/NARRATIVE: 31-year-old female that comes in with right lower anterior chest discomfort. Is worse with deep breathing. She had vaginal hysterectomy about 8 days ago. Surgery went well. She has not been otherwise ill. She does feel mildly short of breath if she doesn't take a deep breath when she does take a deep breath that is quite painful for her. No fever or chills. No major abdominal discomfort. No nausea or vomiting. no personal history of blood clots and no known family history for blood clots. occasional cough. 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 Right Upper Abdomen Pain Score (Numeric/FACES): 8 - Related Data Allergies Allergy/AdvReac Type Severity Reaction Status Date / Time No Known Allergies Allergy Verified 04/13/17 09:03 Home Meds: Home Meds Labetalol [Normodyne] 100 mg PO BID 04/12/17 [History] Acetaminophen/oxyCODONE [Percocet 325-5 MG] 2 each PO Q4HR PRN #30 tab 04/13/17 [Rx] Ibuprofen 600 mg PO Q4HR PRN #30 tablet 04/13/17 [Rx] Past Medical History Cardiovascular History: Reports: Hypertension, Other (See Below) Other Cardiovascular History: HTN during third trimester Respiratory History: Reports: None Gastrointestinal History: Reports: GERD Other Gastrointestinal History: Nausea and vomiting of Genitourinary History: Reports: None [employer] History: Reports: , Other (See Below) Other OB/BYN History: menorrhagia, dysmenorrhea, irregular menses, , vaginal itching, pelvic pressure Neurological History: Reports: None Psychiatric History: Reports: None Endocrine/Metabolic History: Reports: Diabetes, Gestational Hematologic History: Reports: Iron Deficiency, Other (See Below) Other Hematologic History: Iron deficiency anemia of , thrombocytopenia Immunologic History: Reports: None Oncologic (Cancer) History: Reports: None Dermatologic History: Reports: Other (See Below) Other Dermatologic History: right hand cellulitis, infected wound - Past Surgical History HEENT Surgical History: Reports: Oral Surgery Female Surgical History: Reports: Hysterectomy Musculoskeletal Surgical History: Reports: Arthroscopic Knee Other Musculoskeletal Surgeries/Procedures:: Fracture of knee cap Social & Family History - Family History Family Medical History: Noncontributory - Tobacco Use Smoking Status *Q: Current Every Day Smoker Years of Tobacco use: 10 Packs/Tins Daily: 0.2 Used Tobacco, but Quit: No Month Tobacco Last Used: Prepregnancy Second Hand Smoke Exposure: No - Caffeine Use Caffeine Use: Reports: Coffee - Recreational Drug Use Recreational Drug Use: No ED ROS GENERAL - Review of Systems Review Of Systems: See Below Constitutional: Denies: Fever, Chills, Diaphoresis HEENT: Reports: No Symptoms Respiratory: Reports: Shortness of Breath, Pleuritic Chest Pain, Cough ( Occasional) Cardiovascular: Reports: Chest Pain (With deep breathing) GI/Abdominal: Denies: Abdominal Pain, Nausea, Vomiting Musculoskeletal: Denies: Back Pain, Leg Pain Skin: Reports: No Symptoms Neurological: Reports: No Symptoms ED EXAM, GENERAL - Physical Exam Exam: See Below General Appearance: Alert, Mild Distress Throat/Mouth: Normal Inspection, Normal Oropharynx Head: Facial Swelling Neck: Supple, Full Range of Motion Respiratory/Chest: No Accessory Muscle Use, Respiratory Distress (Very mild tachypnea). No: Rhonchi, Wheezing Cardiovascular: Tachycardia (Mild, heart rate 102) GI/Abdominal: Soft, Non-Tender Back Exam: Normal Inspection Extremities: Normal Inspection. No: Normal Range of Motion, Leg Pain, Increased Warmth, Redness Neurological: Alert, Oriented, No Motor/Sensory Deficits Skin Exam: Warm, Dry, Normal Color Course - Vital Signs Last Recorded V/S: Last Vital Signs Temp 97.6 F 04/21/17 13:02 Pulse 102 H 04/21/17 13:02 Resp 18 04/21/17 13:02 BP 140/85 04/21/17 13:02 Pulse Ox 97 04/21/17 13:02 - Orders/Labs/Meds Orders: Active Orders 24 hr Category Date Time Status Peripheral IV Care [RC] . DIRECTED Care 04/21/17 13:36 Active Peripheral IV Insertion Adult [OM.PC] Stat Oth 04/21/17 13:32 Ordered Meds: Medications Discontinued Medications Generic Name Dose Route Start Last Admin Trade Name Freq PRN Reason Stop Dose Admin Sodium Chloride 500 mls @ 999 mls/hr 04/21/17 13:32 04/21/17 13:51 Normal Saline IV 04/21/17 14:02 999 mls/hr .BOLUS ONE Administration Sodium Chloride 100 mls @ 60 mls/hr 04/21/17 14:15 04/21/17 14:27 Normal Saline IV 60 mls/hr ASDIRECTED ROSALBA Administration Iopamidol 100 ml 04/21/17 14:05 04/21/17 14:27 Isovue-370 (76%) IVPUSH 04/21/17 14:06 100 ml ONETIME ONE Administration Sodium Chloride 10 ml 04/21/17 13:33 04/21/17 13:52 Saline Flush FLUSH 10 ml ASDIRECTED PRN Administration Keep Vein Open Sodium Chloride 10 ml 04/21/17 14:05 04/21/17 14:27 Saline Flush FLUSH 04/21/17 14:06 10 ml ONETIME ONE Administration - Re-Assessments/Exams Free Text/Narrative Re-Assessment/Exam: 04/21/17 16:11. CT pulmonary angiogram did come back normal, no evidence for PE. Discharge instructions as documented Departure - Departure Time of Disposition: 15:46 Disposition: Home, Self-Care 01 Condition: Fair Clinical Impression: Pleurisy Instructions: Pleurisy, [id number] Referrals: Viktoria Metz, [employer] PR[employer] OPERATOR [Primary Care Provider] - Forms: ED Department Discharge Additional Instructions: Advil or ibuprofen 600 mg 3 times daily, you may take Tylenol in between doses for extra pain relief as needed, follow-up clinic if not much better and not getting back to normal within 3-4 days as expected, return to ED as needed if symptoms worsening in any way. - My Orders Last 24 Hours: My Active Orders 04/21/17 13:32 Peripheral IV Insertion Adult [OM.PC] Stat 04/21/17 13:36 Peripheral IV Care [RC] . DIRECTED - Assessment/Plan Last 24 Hours: My Active Orders 04/21/17 13:32 Peripheral IV Insertion Adult [OM.PC] Stat 04/21/17 13:36 Peripheral IV Care [RC] . DIRECTED
[2017-04-21] MEDS ORDERED: Sodium Chloride 0.9% 10 ML Syringe FLUSH ONE (14:05)
[2017-04-21] MEDS ORDERED: Iopamidol 755 Mg/ML 100 ML Bottle IVPUSH ONE (14:05)
[2017-04-21] MEDS ORDERED: Sodium Chloride 0.9% 100 ML IV SCH (14:15)
--- NOTE | 2017-04-21 14:59 | CT ---
CT chest Technique: Multiple axial sections through the chest were obtained. Intravenous contrast was utilized. Comparison: No prior chest imaging. Findings: Pulmonary arteries are moderately well-opacified. No filling defects are seen to indicate pulmonary embolism. Mediastinum and hilar regions show no adenopathy or mass. No pericardial thickening is seen. Small portion of the visualized upper abdominal structures are within normal limits. Lungs are clear. No parenchymal densities are seen. No pleural effusions are seen. No pneumothorax is identified. Bone window settings were reviewed which appear within normal limits for the patient's age. Impression: 1. No findings of pulmonary embolism. 2. Other portions of the CT study of the chest performed as a pulmonary angiogram protocol appear unremarkable. Diagnostic code #1
== END 2017-04-21 15:54 | disposition home or self-care (01) ==
LOC: JD.ED 12:46
DX: R09.1 Pleurisy (principal); I10 Essential (primary) hypertension; F17.210 Nicotine dependence, cigarettes, uncomplicated; Z79.899 Other long term (current) drug therapy
CPT/HCPCS: 71275; 99284; J7030; J7040; J7050; Q9967